=== PATIENT | female | born 1945 | race Caucasian/White ===

== ENCOUNTER 2017-06-19 02:50 | Emergency (ER) | payer OTHER ==
[2017-06-19 03:05] VITALS: BP 145/95; TEMP 100.3; BMI 22.8
[2017-06-19] MEDS ORDERED: DECADRON 4 MG/ML SDV IM STA (03:50)
--- NOTE | 2017-06-19 03:53 | ED.PDOC ---
General ED Provider: Dr. RODRIGO BOSE Chief Complaint: Sore Throat Stated Complaint: Came for the sore throat, ears full, sinus drainage, Time Seen by Physician: 03:51 Mode of Arrival: Walk-In Information Source: Patient Primary Care Provider: KIMBERLEE ROSARIO Nursing and Triage Documentation Reviewed and Agree: Yes Reviewed sepsis parameters & appropriate labs ordered?: Yes System Inflammatory Response Syndrome: Pulse >90 BPM Sepsis Protocol: For patient's 13 years and over: Temp is 96.8 and below OR 101 and greater Pulse >90 BPM Resp >20/minute Acutely Altered Mental Status Are patient's symptoms suggestive of a new infection, such as: -Pneumonia -Skin, Soft Tissue -Endocarditis -UTI -Bone, Joint Infection -Implantable Device -Acute Abdominal Infection -Wound Infection -Meningitis -Blood Stream Catheter Infection -Unknown EENT Complaint Exam - Throat Complaint/Exam Symptoms Are: Still present Timimg: Constant Initial Severity: Mild Current Severity: Mild Aggravating: Reports: Eating Alleviating: Reports: None Associated Signs and Symptoms: Reports: Fever, Cough, Hoarseness, Sinus discomfort, Nasal congestion. Denies: Dysphagia, Drooling, Foreign body sensation, Chills, Wheezing, Difficulty breathing, Lethargy, Irritability, Decreased activity, Vomiting, Diarrhea, Decreased hearing, Ear drainage Uvula Midline: Yes Deanna-tonsillar Fluctuence: No Scarlatinaform Rash Present: No Stridor Present: No Sinus Tenderness Present: No Tonsillar Hypertrophy Present: No Tonsillar Exudate Present: No Deanna-tonsillar Swelling Present: No Adenopathy Present: No Splenomegaly Present: No Differential Diagnoses: Influenza, Pharyngitis, Sinusitis, Tonsillitis, URI Review of Systems - Review Of Systems Constitutional: Reports: Fever, Malaise Eyes: Reports: No symptoms Ears, Nose, Mouth, Throat: Reports: Throat pain Respiratory: Reports: Cough Cardiac: Reports: No symptoms GI: Reports: No symptoms : Reports: No symptoms Musculoskeletal: Reports: No symptoms Skin: Reports: No symptoms Neurological: Reports: No symptoms Endocrine: Reports: No symptoms Hematologic/Lymphatic: Reports: No symptoms All Other Systems: Reviewed and Negative Past Medical History - Past Medical History Previously Healthy: Yes Endocrine: Reports: Hypothyroid, Dyslipidemia Cardiovascular: Reports: Hypertension Respiratory: Reports: None Hematological: Reports: None Gastrointestinal: Reports: None Genitourinary: Reports: Kidney stones Neuro/Psych: Reports: Anxiety Musculoskeletal: Reports: None Cancer: Reports: None Last Menstrual Period: 1991 Other Pertinent Past Medical History: Arthritis - Surgical History General Surgical History: Reports: Hysterectomy, Appendectomy, Other ( oophrectomy ) - Family History Family History: Reports: Heart, Diabetes - Social History Smoking Status: Never smoker Hx Substance Use: No Alcohol Screening: None - Immunizations Tetanus Shot up to Date: No (unknown) Physical Exam - Physical Exam Appearance: Ill-appearing Eyes: TRE, EOMI, Conjunctiva clear ENT: TMs Occluded (wax in both ears), Erythema Respiratory: Airway patent, Breath sounds clear, Breath sounds equal, Respirations nonlabored Cardiovascular: RRR, Pulses normal, No rub, No murmur GI/: Soft, Nontender, No masses, Bowel sounds normal, No Organomegaly Musculoskeletal: Normal strength, ROM intact, No edema, No calf tenderness Skin: Warm, Dry, Normal color Neurological: Sensation intact, Motor intact, Reflexes intact, Cranial nerves intact, Alert, Oriented Psychiatric: Affect appropriate, Mood appropriate Critical Care Note - Critical Care Note Total Time (mins): 15 Course - Course Hematology/Chemistry: 06/19/17 04:00 06/19/17 04:00 Orders, Labs, Meds: Orders Category Date Time Status CBC W/ AUTO DIFF Stat LAB 06/19/17 03:47 Ordered COMPREHENSIVE METABOLIC PANEL Stat LAB 06/19/17 03:47 Ordered FLU A/B MOLECULAR Stat LAB 06/19/17 03:47 Uncollected LACTIC ACID Stat LAB 06/19/17 03:47 Ordered MOLECULAR GROUP A STREP Stat LAB 06/19/17 03:47 Uncollected PROCALCITONIN Stat LAB 06/19/17 Ordered CHEST, 2 VIEWS PA & LAT Stat RADS 06/19/17 03:47 Ordered Vital Signs: Temp Pulse Resp BP Pulse Ox 06/19/17 02:51 100.3 F H 102 H 20 145/95 H 93 L Departure - Departure Time of Disposition: 04:44 Disposition: HOME SELF-CARE Discharge Problem: URTI (acute upper respiratory infection) Instructions: Upper Respiratory Infection (ED) Condition: Stable Pt referred to PMD for follow-up: Yes IPMP verified?: No Additional Instructions: Increase Hydration Probiotics If not better come back Discussed all the findings, wanted to be treated as out patient, is with her. Prescriptions: Cephalexin [Keflex] 500 mg PO Q12HR #14 capsule Codeine/Promethazine Syrup [Phenergan with Codeine 6.25/10 mg/5 ml] 5 ml PO Q8H #1 bottle Prednisone 10 mg PO BIDWM #14 tablet Allergies/Adverse Reactions: Allergies No Known Allergies Allergy (Verified 06/19/17 02:59) Home Medications: Ambulatory Orders Levothyroxine Sodium [Synthroid] 100 mcg PO QDAC 01/03/15 Rosuvastatin Calcium [Crestor] 10 mg PO BEDTIME 01/03/15 Cephalexin [Keflex] 500 mg PO Q12HR #14 capsule 06/19/17 Codeine/Promethazine Syrup [Phenergan with Codeine 6.25/10 mg/5 ml] 5 ml PO Q8H #1 bottle 06/19/17 Prednisone 10 mg PO BIDWM #14 tablet 06/19/17 Disposition Discussed With: Patient, Family
[2017-06-19] MEDS ORDERED: ZOFRAN 4 MG/2 ML IM STA (04:07)
--- NOTE | 2017-06-19 04:31 | DI ---
EXAM: PA and lateral views of the chest. HISTORY: Cough. FINDINGS: The bones are unremarkable. The cardiac silhouette and pulmonary vasculature are within no rmal limits. The costophrenic angles are clear. There is biapical scarring. There is left basilar at electasis and/or pneumonia. Impression: Left basilar atelectasis and/or pneumonia.
[2017-06-19] MEDS ORDERED: ROCEPHIN IM STA (04:41)
[2017-06-19] MEDS ORDERED: LIDOCAINE HCL 1% SDV SUBCUT STA (04:41)
== END 2017-06-19 05:00 | disposition home or self-care (01) ==
LOC: ED 02:50
DX: J06.9 Acute upper respiratory infection, unspecified (principal); R05 Cough; E03.9 Hypothyroidism, unspecified; I10 Essential (primary) hypertension; E78.5 Hyperlipidemia, unspecified; Z79.899 Other long term (current) drug therapy
CPT/HCPCS: 36415; 80053; 83605; 84145; 85025; 87040; 87502; 87651; 96372; 99283